=== PATIENT | male | born 1995 | race Caucasian/White ===

== ENCOUNTER 2017-10-24 15:05 | Emergency (ER) | payer OTHER, MEDICAID ==
[~2017-10-24] VITALS: Ht 177.8 cm; Wt 72.6 kg
[2017-10-24 20:10] VITALS: BP 122/74
== END 2017-10-24 20:10 | disposition home or self-care (01) ==
LOC: ED 15:05
DX: B34.9 Viral infection, unspecified (principal)
CPT/HCPCS: Q0162